=== PATIENT | female | born 1965 | race American Indian/Alaskan Native ===

== ENCOUNTER 2021-08-21 11:11 | Emergency (ER) | payer SELFPAY ==
[2021-08-21] MEDS ORDERED: oxyCODONE /ACETAMINOPHEN 5-325MG TAB PO ONE (11:18)
--- NOTE | 2021-08-21 11:44 | Emergency Department Report ---
ED Fall HPI - General Chief Complaint: Fall Stated Complaint: PAIN Time Seen by Provider: 08/21/21 11:15 Source: patient Mode of arrival: Ambulatory - History of Present Illness Initial Comments: 55 YO COMES TO ER SP GLF AT HOME IN SHOWER THIS AM. 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 FAMILY WITH HER IN THE HOME. 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 Place Fall Occurred: home Loss of Consciousness: none Prolonged Down Time?: no Symptoms Prior to Fall: none Location: other Location - Extremities: Right: Leg Severity: severe Quality: aching Context: tripped/slipped Associated Symptoms: denies - Related Data Allergies Allergy/AdvReac Type Severity Reaction Status Date / Time No Known Allergies Allergy Unverified 08/21/21 11:14 ED Review of Systems ROS: Stated complaint: PAIN Other details as noted in HPI Comment: All other systems reviewed and negative ED Past Medical Hx - Past Medical History Previous Medical History?: No - Surgical History Past Surgical History?: No - Family History Family history: no significant - Social History Smoking Status: Never Smoker Substance Use Type: None ED Physical Exam - General Limitations: No Limitations General appearance: alert, in no apparent distress - Head Head exam: Present: atraumatic, normocephalic - Eye Eye exam: Present: normal appearance - ENT ENT exam: Present: mucous membranes moist - Neck Neck exam: Present: normal inspection - Respiratory Respiratory exam: Present: normal lung sounds bilaterally. Absent: respiratory distress - Cardiovascular Cardiovascular Exam: Present: regular rate, normal rhythm. Absent: systolic murmur, diastolic murmur, rubs, gallop - GI/Abdominal GI/Abdominal exam: Present: soft, normal bowel sounds - Extremities Exam Extremities exam: Present: normal inspection - Back Exam Back exam: Present: normal inspection - Neurological Exam Neurological exam: Present: alert, oriented X3 - Psychiatric Psychiatric exam: Present: normal affect, normal mood - Skin Skin exam: Present: warm, dry, intact, normal color. Absent: rash ED Course Vital Signs 08/21/21 08/21/21 11:18 12:47 Temperature 97.9 F 97.8 F Pulse Rate 95 H 70 Respiratory 32 H 14 Rate Blood Pressure 116/68 Blood Pressure 116/79 [Right] O2 Sat by Pulse 100 100 Oximetry ED Medical Decision Making - Radiology Data Radiology results: report reviewed, image reviewed NAP - Medical Decision Making XRAY NAP MEDICATED FOR PAIN DC HOME WITH DC PLAN OF CARE INCLUDING OTC PAIN MEDS, ACTIVITY AND FOLLOW UP. PT TOLD TECH ON D/C SHE HAS A/C PAIN AND NEEDS PAIN MEDS. SHE HAS BEEN ENCOURAGED TO FOLLOW UP WITH PCP AND IN THE MEANTIME USE OTC PAIN MEDS ON DC PT IS AMBULATORY WITHOUT A LIMP AND NEUROVASC INTACT. Vital Signs 08/21/21 08/21/21 11:18 12:47 Temperature 97.9 F 97.8 F Pulse Rate 95 H 70 Respiratory 32 H 14 Rate Blood Pressure 116/68 Blood Pressure 116/79 [Right] O2 Sat by Pulse 100 100 Oximetry - Differential Diagnosis RO FX Critical care attestation.: If time is entered above; I have spent that time in minutes in the direct care of this critically ill patient, excluding procedure time. ED Disposition Clinical Impression: Fall Qualifiers: Encounter type: initial encounter Qualified Code(s): W19.XXXA - Unspecified fall, initial encounter Leg pain Qualifiers: Laterality: right Qualified Code(s): M79.604 - Pain in right leg Contusion Qualifiers: Encounter type: initial encounter Disposition: HOME / SELF CARE / HOMELESS Is pt being admited?: No Does the pt Need Aspirin: No Condition: Stable Instructions: Contusion Additional Instructions: REST ICE ELEVATE LEG MOTRIN OR TYLENOL FOR PAIN FOLLOW UP WITH PCP IF PAIN PERSISTS REFERRAL BELOW XRAYS NORMAL Referrals: DIETER DUMAS MD [Staff Physician] - 3-5 Days Time of Disposition: 12:28
--- NOTE | 2021-08-21 12:20 | XRay Report ---
RIGHT HIP 3 VIEW(S) INDICATION / CLINICAL INFORMATION: pain sp fall COMPARISON: None available. FINDINGS: BONES / JOINT(S): No acute fracture or subluxation. No significant arthritis. SOFT TISSUES: No significant abnormality. ADDITIONAL FINDINGS: None. RIGHT FEMUR 2 VIEW(S) INDICATION / CLINICAL INFORMATION: pain sp fall COMPARISON: None available. FINDINGS: BONES / JOINT(S): No acute fracture or subluxation. No significant arthritis. SOFT TISSUES: No significant abnormality. ADDITIONAL FINDINGS: None. Signer Name: Reinaldo Perkins DO Signed: 08/21/2021 12:13 PM Workstation Name: [id number]
[2021-08-21 13:00] VITALS: BP 116/79
== END 2021-08-21 12:47 | disposition home or self-care (01) ==
LOC: ED 11:11
DX: M79.604 Pain in right leg (principal); T14.8XXA Other injury of unspecified body region, initial encounter; W19.XXXA Unspecified fall, initial encounter; Y93.89 Activity, other specified; Y92.89 Other specified places as the place of occurrence of the external cause; Y99.8 Other external cause status
CPT/HCPCS: 73521; 99283